=== PATIENT | male | born 1990 | race Native Hawaiian/Other Pacific Islander ===

== ENCOUNTER 2016-08-24 15:13 | Emergency (ER) | payer OTHER ==
[~2016-08-24] VITALS: Ht 175.3 cm; Wt 74.8 kg
[2016-08-24 15:30] VITALS: BP 155/93; TEMP 97.8
== END 2016-08-24 16:00 | disposition left against medical advice (07) ==
LOC: ED 15:13
DX: F20.0 Paranoid schizophrenia (principal)

== ENCOUNTER 2020-10-07 15:15 | Outpatient (CLI) | payer OTHER | END 2020-10-07 23:56 | disposition home or self-care (01) | LOC: RAD 15:15 | PROVIDERS: ATTEND Nurse Practitioner Family | DX: R10.9 Unspecified abdominal pain (principal); R11.2 Nausea with vomiting, unspecified ==

== ENCOUNTER 2020-12-03 10:26 | Outpatient (CLI) | payer OTHER ==
[2020-12-03 10:42] LABS: PLATELET COUNT 157 K/uL (142-355)
[2020-12-03 10:53] LABS: POTASSIUM 3.7 mmol/L (3.6-5.2)
== END 2020-12-03 19:37 | disposition home or self-care (01) ==
LOC: LABW 10:26
PROVIDERS: ATTEND General Practice
DX: F20.9 Schizophrenia, unspecified (principal)
CPT/HCPCS: 36415; 80053; 85027

== ENCOUNTER 2021-02-12 17:15 | Emergency (ER) | payer OTHER ==
[~2021-02-12] VITALS: Ht 172.7 cm; Wt 81.6 kg
[2021-02-12 17:19] VITALS: TEMP 99.8
[2021-02-12 18:01] LABS: PLATELET COUNT 193 K/uL (142-355)
[2021-02-12 18:08] LABS: POTASSIUM 3.7 mmol/L (3.6-5.2)
[2021-02-12 21:48] VITALS: BP 130/83
== END 2021-02-12 21:48 | disposition home or self-care (01) ==
LOC: ED 17:15
PROVIDERS: Family Medicine
DX: K29.70 Gastritis, unspecified, without bleeding (principal); R11.2 Nausea with vomiting, unspecified
CPT/HCPCS: 80053; 81000; 82150; 83690; 85027; 96374; 96375; 99284; J2405; J3490; Q9963

== ENCOUNTER 2021-02-15 13:25 | Emergency (ER) | payer OTHER ==
[~2021-02-15] VITALS: Ht 172.7 cm; Wt 77.1 kg
[2021-02-15 13:31] VITALS: BP 131/92; TEMP 99
[2021-02-15 14:29] LABS: POTASSIUM 3.7 mmol/L (3.6-5.2)
[2021-02-15 14:30] LABS: PLATELET COUNT 185 K/uL (142-355)
== END 2021-02-15 16:48 | disposition home or self-care (01) ==
LOC: ED 13:25
PROVIDERS: Emergency Medicine
DX: K59.09 Other constipation (principal); G44.209 Tension-type headache, unspecified, not intractable; R07.89 Other chest pain
CPT/HCPCS: 80048; 85027; 93005; 99283

== ENCOUNTER 2021-02-16 13:53 | Emergency (ER) | payer OTHER ==
[~2021-02-16] VITALS: Ht 172.7 cm; Wt 77.1 kg
[2021-02-16 13:59] VITALS: BP 151/99; TEMP 98.9
== END 2021-02-16 19:58 | disposition home or self-care (01) ==
LOC: ED 13:53
DX: K58.1 Irritable bowel syndrome with constipation (principal)
CPT/HCPCS: 99282

== ENCOUNTER 2021-03-04 14:07 | Outpatient (CLI) | payer OTHER ==
[2021-03-04 14:23] LABS: PLATELET COUNT 180 K/uL (142-355)
[2021-03-04 14:44] LABS: POTASSIUM 3.8 mmol/L (3.6-5.2)
== END 2021-03-04 21:07 | disposition home or self-care (01) ==
LOC: LABW 14:07
PROVIDERS: ATTEND Nurse Practitioner Family
DX: N39.0 Urinary tract infection, site not specified (principal); R10.9 Unspecified abdominal pain; R50.9 Fever, unspecified; R53.83 Other fatigue; R53.81 Other malaise; R11.12 Projectile vomiting
CPT/HCPCS: 36415; 80053; 82150; 83690; 84439; 84443; 85027; 86677

== ENCOUNTER 2021-06-04 12:39 | Emergency (ER) | payer OTHER ==
[~2021-06-04] VITALS: Ht 172.7 cm; Wt 77.1 kg
[2021-06-04 12:54] VITALS: BP 148/98; TEMP 98.4
[2021-06-04 13:46] LABS: PLATELET COUNT 190 K/uL (142-355)
== END 2021-06-04 17:49 | disposition home or self-care (01) ==
LOC: ED 12:39
PROVIDERS: Emergency Medicine Emergency Medical Services
DX: B34.9 Viral infection, unspecified (principal)
CPT/HCPCS: 80053; 81000; 83690; 85027; 96360; 96374; 96375; 99284; J1885; J2405; Q9963